=== PATIENT | female | born 1985 | race Caucasian/White ===

== ENCOUNTER 2023-04-07 07:42 | Observation (INO) | payer BC ==
[2023-04-07] MEDS ORDERED: Metoclopramide HCl 10 MG (2 mL) VIAL ONE (08:40)
[2023-04-07] MEDS ORDERED: Aspirin Chewable 81 MG TAB ONE (08:40)
[2023-04-07] MEDS ORDERED: methylPREDNISolone Sod Succ/PF 125 MG/2 ML VIAL ONE (08:40)
[2023-04-07] MEDS ORDERED: diphenhydrAMINE 50 MG/ML VIAL ONE (08:40)
[2023-04-07 08:51] LABS: #Basophils 0.1 thou/uL (0.0-0.2); #Eosinphils 0.1 thou/uL (0.0-0.7); #Monocytes 0.5 thou/uL (0.11-0.59); #Neutrophils 4.1 thou/uL (1.40-6.50); %Basophils 0.9 % (0.0-1.0); %Eosinophils 0.7 % (0.0-10.0); %Lymphocytes 28.2 % (21.0-51.0); %Monocytes 8.1 % (0.0-10.0); %Neutrophils 61.8 % (42.0-75.0); Hematocrit 44.5 % (36.0-47.0); Hemoglobin 14.5 g/dL (12.0-16.0); Mean Corpuscular HGB CONC 32.6 g/dL (32.0-36.0); Mean Corpuscular Hemoglobin 30.7 pg (27.0-31.0); Mean Corpuscular Volume 94.1 fl (78.0-98.0); Mean Platelet Volume 9.6 fL (7.4-10.4); Platelet Count 268 10x3/uL (130-400); RBC Distribution Width 12.1 % (11.5-14.5); Red Blood Cell (RBC) Count 4.73 mill/uL (4.20-5.40); White Blood Cell (WBC) Count 6.7 10x3/uL (4.8-10.8)
[2023-04-07 09:04] LABS: PTT 26.9 sec (22.9-36.1); Prothrombin Time 12.8 sec (12.0-14.7)
[2023-04-07 09:12] LABS: ALT (SGPT) 12 U/L (8-55); AST (SGOT) 17 U/L (5-34); Alkaline Phosphatase 70 U/L (40-110); Anion Gap 12 mmol/L (10-20); BUN (Urea Nitrogen) 12 mg/dL (7.0-18.7); Bilirubin, Total 0.5 mg/dL (0.2-1.2); Calc. Creatinine Clearance 0 mL/min (70-130); Calcium 8.7 mg/dL (7.8-10.44); Carbon Dioxide 21 mmol/L (22-29); Chloride 110 mmol/L (98-107); Estimated GFR 83; Globulin 2.8 g/dL (2.4-3.5); Glucose 92 mg/dL (70-105); Potassium 4.3 mmol/L (3.5-5.1); Protein, Total 6.8 g/dL (6.0-8.3); Sodium 139 mmol/L (136-145)
[2023-04-07 09:19] LABS: Troponin I Less than 0.010 ng/mL (< 0.028)
[2023-04-07] MEDS ORDERED: Iopamidol-370 76% 500 ML MDV (1 ML CHARGE) ONE (09:35)
[2023-04-07] MEDS ORDERED: hydrALAZINE 20 MG/ML VIAL SLOW IVP PRN (10:28)
[2023-04-07] MEDS ORDERED: Acetaminophen 325 MG TAB PO PRN (10:28)
[2023-04-07 10:36] VITALS: BMI 24.0
[2023-04-07] MEDS ORDERED: SUMAtriptan Succinate 50 MG TAB PO PRN ×2 (10:51→12:45)
[2023-04-07] MEDS ORDERED: Diazepam 5 MG TAB ONE (10:56)
[2023-04-07] MEDS ORDERED: Diazepam 5 MG TAB PO SCH (11:00)
[2023-04-07 18:45] LABS: INR-International Normal Ratio 1.1
[2023-04-07 18:46] LABS: D-Dimer Test 0.41 mcg/mL (0.27-0.43)
[2023-04-07] MEDS ORDERED: Atorvastatin Calcium 40 MG TAB PO SCH (21:00)
[2023-04-08 07:25] LABS: Cardiac Risk 5.3 (Less than 4.5)
[2023-04-08] MEDS ORDERED: Aspirin 81 mg Enteric Coated Tablet PO SCH (09:00)
[2023-04-08] MEDS ORDERED: Enoxaparin 30 MG (0.3 mL) SYRINGE SC SCH (09:00)
[2023-04-08 13:35] VITALS: TEMP 98
[2023-04-08 16:25] VITALS: BP 109/65
[2023-04-09] MEDS ORDERED: Enoxaparin 40 MG (0.4 mL) SYRINGE SC SCH (09:00)
[2023-04-09 15:18] LABS: HEX PHOS LA Tube 1 33.6 SEC; Hexagonal Phospholipid Neut 1.6 SEC (0-8.0)
== END 2023-04-08 16:25 | disposition home or self-care (01) ==
LOC: ERS 07:42 → ERHOLD 10:11 → 2SE 16:28
PROVIDERS: ADMIT Internal Medicine; ATTEND Internal Medicine
DX: G45.9 Transient cerebral ischemic attack, unspecified (principal); G43.909 Migraine, unspecified, not intractable, without status migrainosus; I08.3 Combined rheumatic disorders of mitral, aortic and tricuspid valves; N18.2 Chronic kidney disease, stage 2 (mild); E86.0 Dehydration; E78.5 Hyperlipidemia, unspecified; F90.9 Attention-deficit hyperactivity disorder, unspecified type; Z79.899 Other long term (current) drug therapy
CPT/HCPCS: 36415; 36416; 70450; 70496; 70498; 70551; 71045; 80053; 80061; 83090; 84484; 85025; 85300; 85303; 85305; 85307; 85598; 85610; 85730; 86147; 93005; 93306; 94760; 96365; 96372; 96375; G0378; J1200; J1650; J2765; J2930; Q9967